=== PATIENT | female | born 1995 | race Caucasian/White ===

== ENCOUNTER 2018-06-15 21:36 | Emergency (ER) | payer OTHER ==
--- NOTE | 2018-06-15 21:56 | UC ---
Skin Complaint HPI - HPI Summary HPI Summary: 22-year-old female presents with 1 day of non-itchy erythematous rash on her torso and arms. She states that it doesn't bother her at all and that she has not been recently ill. She saw the health services doctor today who told her that this was a benign eruption. She was prescribed an ointment but hasn't put anything on it. She reports no recent medications, changes and oils, lotions etc. and she has no allergies. - History of Current Complaint Time Seen by Provider: 06/15/18 21:48 Stated Complaint: RASH Hx Obtained From: Patient Review of Systems Constitutional: Negative Skin: Rash ENT: Negative Respiratory: Negative All Other Systems Reviewed And Are Negative: Yes PMH/Surg Hx/FS Hx/Imm Hx Previously Healthy: Yes - Family History Known Family History: Positive: Hypertension - Social History Occupation: Student Lives: Dormitory/Roommates Smoking Status (MU): Never Smoked Tobacco Physical Exam Triage Information Reviewed: Yes Appearance: Well-Appearing, No Pain Distress, Well-Nourished Eye Exam: Normal ENT: Positive: Normal ENT inspection Neck exam: Normal Neck: Positive: Supple, Nontender, No Lymphadenopathy Respiratory: Positive: Lungs clear Cardiovascular: Positive: RRR Musculoskeletal Exam: Normal Skin: Positive: rashes - Lightly erythematous tiny papules on the right volar forearm and anterior/posterior torso. Course/Dx - Course Course Of Treatment: Benign appearing papular eruption appears to be possible viral in nature. It is not uncomfortable or itchy in any way. There is no known precipitating cause. Likely will go away on its own. - Differential Diagnoses - Skin Complaint Differential Diagnoses: Other - Heat related, viral related, drug rash - Diagnoses Provider Diagnoses: Nonspecific dermatitis Discharge - Sign-Out/Discharge Documenting (check all that apply): Patient Departure All imaging exams completed and their final reports reviewed: No Studies - Discharge Plan Condition: Good Disposition: HOME Patient Education Materials: Dermatitis (ED) Referrals: [facility] [Outside] Additional Instructions: Follow-up with [facility] for persistent symptoms.. Return to the ER or urgent care with worsening, new symptoms, or other concerns. - Billing Disposition and Condition Condition: GOOD Disposition: Home
[2018-06-15 21:59] VITALS: BP 134/77
== END 2018-06-15 22:05 | disposition home or self-care (01) ==
LOC: UCCORT 21:36
DX: L30.9 Dermatitis, unspecified (principal)
CPT/HCPCS: 99201; G0463